=== PATIENT | female | born 1970 | race Caucasian/White ===

== ENCOUNTER 2019-01-18 16:40 | Emergency (ER) | payer BC, OTHER ==
--- NOTE | 2019-01-18 17:43 | ER Document Report ---
ED Medical Screen (RME) - General Chief Complaint: Blood Pressure Problem Stated Complaint: BLOOD PRESSURE ISSUES Time Seen by Provider: 01/18/19 17:40 Mode of Arrival: Ambulatory Information source: Patient Notes: Patient presents to the emergency department with complaints of high blood pressure. Reports she is going to have a biopsy of her breast and she has had her blood pressure checked several times it has been elevated. Denies headache. Reports little blurred vision. Reports she has history of high blood pressure due to anxiety medication a few years ago but no longer taking that medication. I have greeted and performed a rapid initial assessment of this patient. A comprehensive ED assessment and evaluation of the patient, analysis of test results and completion of the medical decision making process will be conducted by additional ED providers. Dictation of this chart was performed using voice recognition software; therefore, there may be some unintended grammatical errors. TRAVEL OUTSIDE OF THE [place] IN LAST 30 DAYS: No - Related Data Allergies/Adverse Reactions: No Known Allergies Allergy (Verified 01/18/19 16:43) Past Medical History - Past Medical History Cardiac Medical History: Reports: Hx Hypertension - HCTZ Denies: Hx Coronary Artery Disease, Hx Heart Attack Pulmonary Medical History: Denies: Hx Asthma, Hx Bronchitis, Hx COPD, Hx Pneumonia Neurological Medical History: Reports: Hx Migraine. Denies: Hx Cerebrovascular Accident, Hx Seizures GI Medical History: Denies: Hx Hepatitis, Hx Hiatal Hernia, Hx Ulcer Musculoskeltal Medical History: Denies Hx Arthritis Psychiatric Medical History: Reports: Hx Anxiety, Hx Depression Infectious Medical History: Denies: Hx Hepatitis Past Surgical History: Reports: Hx Cholecystectomy, Hx Orthopedic Surgery. Denies: Hx Hysterectomy, Hx Mastectomy, Hx Open Heart Surgery, Hx Pacemaker - Immunizations Hx Diphtheria, Pertussis, Tetanus Vaccination: No Physical Exam - Vital signs Vitals: Temp Pulse Resp BP Pulse Ox 98.6 F 96 16 152/88 H 96 01/18/19 16:45 01/18/19 16:45 01/18/19 16:45 01/18/19 16:45 01/18/19 16:45 Course - Vital Signs Vital signs: Temp Pulse Resp BP Pulse Ox 98.6 F 96 16 152/88 H 96 01/18/19 16:45 01/18/19 16:45 01/18/19 16:45 01/18/19 16:45 01/18/19 16:45
[2019-01-18 18:14] LABS: ABSOLUTE EOSINOPHILS # (AUTO) 0.2 10^3/uL (0.0-0.6); ABSOLUTE LYMPHOCYTES (AUTO) 1.4 10^3/uL (0.5-4.7); ABSOLUTE MONOCYTES (AUTO) 0.5 10^3/uL (0.1-1.4); ABSOLUTE NEUT (AUTO) 5.2 10^3/uL (1.7-8.2); BASOPHILS % (AUTO) 0.5 % (0-2); EOSINOPHILS % (AUTO) 2.7 % (0-6); HEMATOCRIT 35.5 % (36.0-47.0); LYMPHOCYTES % (AUTO) 19.1 % (13-45); MEAN CORPUSCULAR HEMOGLOBIN 27.8 pg (27.0-33.4); MEAN CORPUSCULAR HGB CONC 33.7 g/dL (32.0-36.0); MEAN CORPUSCULAR VOLUME 83 fl (80-97); MONOCYTES % (AUTO) 7.3 % (3-13); PLATELET COUNT 284 10^3/uL (150-450); RED CELL DISTRIBUTION WIDTH 15.7 % (11.5-14.0); SEGMENTED NEUTROPHILS % (AUTO) 70.4 % (42-78); TOTAL CELLS COUNTED % (AUTO) 100 %; WHITE BLOOD COUNT 7.4 10^3/uL (4.0-10.5)
[2019-01-18 18:36] LABS: ALANINE AMINOTRANSFERASE 22 U/L (9-52); ALBUMIN 4.3 g/dL (3.5-5.0); ALKALINE PHOSPHATASE 94 U/L (38-126); ANION GAP 10 (5-19); ASPARTATE AMINO TRANSFERASE 19 U/L (14-36); BILIRUBIN,DIRECT 0.2 mg/dL (0.0-0.4); BILIRUBIN,TOTAL 0.4 mg/dL (0.2-1.3); BLOOD UREA NITROGEN 14 mg/dL (7-20); CALCIUM 9.2 mg/dL (8.4-10.2); CARBON DIOXIDE 26 mmol/L (22-30); CHLORIDE 102 mmol/L (98-107); GLUCOSE 120 mg/dL (75-110); TOTAL PROTEIN 7.4 g/dL (6.3-8.2)
[2019-01-19] MEDS ORDERED: LISINOPRIL 10 MG TABLET PO ONE (00:08)
--- NOTE | 2019-01-19 00:11 | ER Document Report ---
ED General - General Chief Complaint: Blood Pressure Problem Stated Complaint: BLOOD PRESSURE ISSUES Time Seen by Provider: 01/18/19 17:40 Primary Care Provider: BERNY ISAAC MD [Primary Care Provider] - Follow up in 3-5 days Mode of Arrival: Ambulatory Notes: Patient is a 48-year-old female without chronic medical problems who presents from an urgent care due to concerns of essential hypertension. The patient reports that for the past several days she has noted intermittent blurring of vision, has checked her blood pressure on several occasions in multiple different locations including at home and her [facility] and found that it is consistently elevated usually in the 150s to 170 systolic. She went to an urgent care today, blood pressure was 175 systolic and she was referred to the emergency room due to degree of blood pressure elevation. She denies any associated symptoms at the time of my evaluation stating that the only symptom that she is had is occasional blurring of vision. Denies any visual field changes at the time of my assessment. No headache, neck pain, shortness of breath or chest pain. Nothing seems to improve or worsen her blood pressure. States she is never been on blood pressure medications in the past. Has not seen her primary doctor regarding today's concerns. TRAVEL OUTSIDE OF THE [place] IN LAST 30 DAYS: No - HPI Patient complains to provider of: High blood pressure Onset: Just prior to arrival Onset/Duration: Constant Quality of pain: No pain Severity: None Pain Level: Denies Associated symptoms: None Exacerbated by: Denies Relieved by: Denies Similar symptoms previously: Yes Recently seen / treated by doctor: Yes - Related Data Allergies/Adverse Reactions: No Known Allergies Allergy (Verified 01/18/19 16:43) Past Medical History - General Information source: Patient - Social History Smoking Status: Never Smoker Chew tobacco use (# tins/day): No Frequency of alcohol use: Rare Drug Abuse: None Lives with: Family Family History: Reviewed & Not Pertinent Patient has suicidal ideation: No Patient has homicidal ideation: No - Past Medical History Cardiac Medical History: Reports: Hx Hypertension - HCTZ Denies: Hx Coronary Artery Disease, Hx Heart Attack Pulmonary Medical History: Denies: Hx Asthma, Hx Bronchitis, Hx COPD, Hx Pneumonia Neurological Medical History: Reports: Hx Migraine. Denies: Hx Cerebrovascular Accident, Hx Seizures Renal/ Medical History: Denies: Hx Peritoneal Dialysis GI Medical History: Denies: Hx Hepatitis, Hx Hiatal Hernia, Hx Ulcer Musculoskeletal Medical History: Denies Hx Arthritis Psychiatric Medical History: Reports: Hx Anxiety, Hx Depression Infectious Medical History: Denies: Hx Hepatitis Past Surgical History: Reports: Hx Cholecystectomy, Hx Orthopedic Surgery. Denies: Hx Hysterectomy, Hx Mastectomy, Hx Open Heart Surgery, Hx Pacemaker - Immunizations Hx Diphtheria, Pertussis, Tetanus Vaccination: No Review of Systems - Review of Systems Notes: Constitutional: Negative for fever. HENT: Negative for sore throat. Eyes: Negative for visual changes. Cardiovascular: Negative for chest pain. Respiratory: Negative for shortness of breath. Gastrointestinal: Negative for abdominal pain, vomiting or diarrhea. Genitourinary: Negative for dysuria. Musculoskeletal: Negative for back pain. Skin: Negative for rash. Neurological: Negative for headaches, weakness or numbness. 10 point ROS negative except as marked above and in HPI. Physical Exam - Vital signs Vitals: Temp Pulse Resp BP Pulse Ox 98.6 F 96 16 152/88 H 96 01/18/19 16:45 01/18/19 16:45 01/18/19 16:45 01/18/19 16:45 01/18/19 16:45 Interpretation: Hypertensive Notes: PHYSICAL EXAMINATION: GENERAL: Well-appearing, well-nourished and in no acute distress. HEAD: Atraumatic, normocephalic. EYES: Pupils equal round and reactive to light, extraocular movements intact, sclera anicteric, conjunctiva are normal. ENT: nares patent, oropharynx clear without exudates. Moist mucous membranes. NECK: Normal range of motion, supple without lymphadenopathy LUNGS: Breath sounds clear to auscultation bilaterally and equal. No wheezes rales or rhonchi. HEART: Regular rate and rhythm without murmurs ABDOMEN: Soft, nontender, normoactive bowel sounds. No guarding, no rebound. No masses appreciated. EXTREMITIES: Normal range of motion, no pitting or edema. No cyanosis. NEUROLOGICAL: No focal neurological deficits. Moves all extremities spontaneously and on command. PSYCH: Normal mood, normal affect. SKIN: Warm, Dry, normal turgor, no rashes or lesions noted. Course - Re-evaluation Re-evalutation: 01/19/19 00:09 Presentation of asymptomatic hypertension. Patient has had some intermittent blurring of vision by her report over the past several months but denies anything currently. Sent from an urgent care due to the elevation of her blood pressure. Patient denies any symptoms concerning for SAH, dissection, IA, or encephalopaty. Alert, oriented, and denies any symptoms at time of assessment. Labs obtained in triage reviewed and noted to be unremarkable. I have discussed critical importance of follow up with PCP within 1 week and increased risk of devastating stroke, heart attack, respiratory distress, and other life threatening complications if blood pressure is not reduced appropriately. Diet and exercise habits also discussed. Patient has been started on lisinopril 20 mg daily. First dose given here in the emergency department. At this time will discharge with return precautions and follow-up recommendations. Verbal discharge instructions given a the bedside and opportunity for questions given. Medication warnings reviewed. Patient is in agreement with this plan and has verbalized understanding of return precautions and the need for primary care follow-up in the next 24-72 hours. 01/19/19 00:09 - Vital Signs Vital signs: Temp Pulse Resp BP Pulse Ox 98.0 F 98 18 151/91 H 94 01/19/19 00:14 01/19/19 00:14 01/19/19 00:14 01/19/19 00:14 01/19/19 00:14 - Laboratory Result Diagrams: 01/18/19 17:46 01/18/19 17:46 Laboratory results interpreted by me: 01/18/19 01/18/19 17:46 17:46 Hct 35.5 L RDW 15.7 H Glucose 120 H Discharge - Discharge Clinical Impression: Essential hypertension Condition: Good Disposition: HOME, SELF-CARE Additional Instructions: You were seen today for blood pressure that was high. This is a long-term risk factor for multiple medical problems including heart attack and stroke. However, the blood pressure in of itself will not cause you to have an acute stroke or heart attack over the course of just several days or weeks. You need to have a gradual reduction of your blood pressure back to normal levels over the next several months in conjunction with your primary care physician. Return if you develop headache, weakness, numbness, chest pain, pass out, or have any other symptoms that are concerning to you. Prescriptions: Lisinopril 20 mg PO DAILY #30 tablet Forms: Return to Work Referrals: BERNY ISAAC MD [Primary Care Provider] - Follow up in 3-5 days
[2019-01-19 00:17] VITALS: BP 151/91
[2019-01-20] MEDS ORDERED: IBUPROFEN 800 MG TABLET PO PRN (21:27)
== END 2019-01-19 00:18 | disposition home or self-care (01) ==
LOC: ER 16:40
DX: I10 Essential (primary) hypertension (principal)
CPT/HCPCS: 36415; 80053; 85025; 99283

== ENCOUNTER 2020-05-16 22:23 | Emergency (ER) | payer BC ==
[2020-05-16] MEDS ORDERED: HYDROCODONE/ACETAMINOPHEN 5-325 MG TABLET PO ONE (23:44)
[2020-05-16] MEDS ORDERED: ONDANSETRON 4 MG TAB.RAPDIS PO ONE (23:44)
--- NOTE | 2020-05-16 23:45 | ER Document Report ---
ED Medical Screen (RME) - General Chief Complaint: Abdominal Pain Stated Complaint: ABDOMINAL PAIN 1 DAY Time Seen by Provider: 05/16/20 23:40 Primary Care Provider: BERNY ISAAC MD [Primary Care Provider] - Follow up as needed Mode of Arrival: Ambulatory Information source: Patient Notes: HPI; 49-year-old female presents to the emergency room complaining of worsening sharp stabbing left lower quadrant pain that started yesterday. Denies any nausea, vomiting, no urinary symptoms no fevers. No known history of diverticulitis. Did not take any medications for her pain. PE: Alert and oriented x3. Moderate distress noted. Lungs: Clear to auscultation without rales, rhonchi, wheezes. Heart: Regular rate and rhythm without murmurs, rubs, gallops. I have greeted and performed a rapid initial assessment of this patient. A comprehensive ED assessment and evaluation of the patient, analysis of test results and completion of the medical decision making process will be conducted by additional ED providers. I have specifically instructed the patient or family members with the patient to immediately return to any nursing staff should anything change in the patient's condition or with their chief complaint. TRAVEL OUTSIDE OF THE [place] IN LAST 30 DAYS: No - Related Data Allergies/Adverse Reactions: No Known Allergies Allergy (Verified 01/18/19 16:43) Past Medical History - Past Medical History Cardiac Medical History: Reports: Hx Hypertension - HCTZ Denies: Hx Coronary Artery Disease, Hx Heart Attack Pulmonary Medical History: Denies: Hx Asthma, Hx Bronchitis, Hx COPD, Hx Pneumonia Neurological Medical History: Reports: Hx Migraine. Denies: Hx Cerebrovascular Accident, Hx Seizures Renal/ Medical History: Denies: Hx Peritoneal Dialysis GI Medical History: Denies: Hx Hepatitis, Hx Hiatal Hernia, Hx Ulcer Musculoskeltal Medical History: Denies Hx Arthritis Psychiatric Medical History: Reports: Hx Anxiety, Hx Depression Infectious Medical History: Denies: Hx Hepatitis Past Surgical History: Reports: Hx Cholecystectomy, Hx Orthopedic Surgery. Denies: Hx Hysterectomy, Hx Mastectomy, Hx Open Heart Surgery, Hx Pacemaker - Immunizations Hx Diphtheria, Pertussis, Tetanus Vaccination: No Physical Exam - Vital signs Vitals: Temp Pulse Resp BP Pulse Ox 99.3 F 121 H 18 141/94 H 97 05/16/20 23:09 05/16/20 23:09 05/16/20 23:09 05/16/20 23:09 05/16/20 23:09 Course - Vital Signs Vital signs: Temp Pulse Resp BP Pulse Ox 99.3 F 121 H 18 141/94 H 97 05/16/20 23:09 05/16/20 23:09 05/16/20 23:09 05/16/20 23:09 05/16/20 23:09 Doctor's Discharge - Discharge Referrals: BERNY ISAAC MD [Primary Care Provider] - Follow up as needed
[2020-05-17 02:45] LABS: ABSOLUTE BASOPHILS # (AUTO) 0.1 10^3/uL (0.0-0.2); ABSOLUTE EOSINOPHILS # (AUTO) 0.2 10^3/uL (0.0-0.6); ABSOLUTE LYMPHOCYTES (AUTO) 2.1 10^3/uL (0.5-4.7); ABSOLUTE MONOCYTES (AUTO) 0.9 10^3/uL (0.1-1.4); ABSOLUTE NEUT (AUTO) 9.3 10^3/uL (1.7-8.2); BASOPHILS % (AUTO) 1.1 % (0-2); EOSINOPHILS % (AUTO) 1.8 % (0-6); HEMATOCRIT 38.4 % (36.0-47.0); HEMOGLOBIN 13.6 g/dL (12.0-15.5); LYMPHOCYTES % (AUTO) 16.7 % (13-45); MEAN CORPUSCULAR HEMOGLOBIN 33.7 pg (27.0-33.4); MEAN CORPUSCULAR HGB CONC 35.5 g/dL (32.0-36.0); MEAN CORPUSCULAR VOLUME 95 fl (80-97); MONOCYTES % (AUTO) 7.2 % (3-13); PLATELET COUNT 283 10^3/uL (150-450); RED BLOOD COUNT 4.04 10^6/uL (3.72-5.28); RED CELL DISTRIBUTION WIDTH 14.9 % (11.5-14.0); SEGMENTED NEUTROPHILS % (AUTO) 73.2 % (42-78); TOTAL CELLS COUNTED % (AUTO) 100 %; WHITE BLOOD COUNT 12.6 10^3/uL (4.0-10.5)
[2020-05-17 02:48] LABS: APPEARANCE,URINE CLEAR; BILIRUBIN,URINE NEGATIVE (NEGATIVE); COLOR,URINE YELLOW; GLUCOSE, URINE NEGATIVE (NEGATIVE); KETONES,URINE NEGATIVE (NEGATIVE); LEUKOCYTE ESTERASE,URINE NEGATIVE (NEGATIVE); NITRITE,URINE NEGATIVE (NEGATIVE); PROTEIN,URINE NEGATIVE (NEGATIVE); URINE SPECIFIC GRAVITY 1.024
[2020-05-17] MEDS ORDERED: MORPHINE SULFATE 10 MG/ML INJ IV ONE (02:54)
[2020-05-17] MEDS ORDERED: NORMAL SALINE 1000 ML 1,000 ML IV ONE (02:54)
[2020-05-17] MEDS ORDERED: ONDANSETRON HCL INJ/PF 4 MG/2 ML SDV IV ONE (02:54)
--- NOTE | 2020-05-17 02:56 | ER Document Report ---
ED GI/ - General Chief Complaint: Abdominal Pain Stated Complaint: ABDOMINAL PAIN 1 DAY Time Seen by Provider: 05/16/20 23:40 Primary Care Provider: BERNY ISAAC MD [ACTIVE STAFF] - 05/19/20 Mode of Arrival: Ambulatory Notes: Patient is a 49-year-old female comes emergency department for chief complaint of sharp pain in the left lower abdomen. She states symptoms started yesterday more mildly but today became sharp and tonight became a lot worse. She denies nausea, vomiting, flank pain, fever/chills, dysuria, vaginal bleeding or discharge. She has had a cholecystectomy, no other surgeries on the abdomen. Past medical history of hypertension, anxiety/depression, obesity, orthopedic surgery. She has never had a colonoscopy or diverticulitis. She is never had ovarian cysts. at bedside. TRAVEL OUTSIDE OF THE [place] IN LAST 30 DAYS: No - Related Data Allergies/Adverse Reactions: No Known Allergies Allergy (Verified 01/18/19 16:43) Home Medications: Cymbalta. fenobrite. topramax. robistatin. Lisinopril Past Medical History - General Information source: Patient - Social History Smoking Status: Never Smoker Chew tobacco use (# tins/day): No Frequency of alcohol use: None Drug Abuse: None Family History: Reviewed & Not Pertinent - Past Medical History Cardiac Medical History: Reports: Hx Hypertension - HCTZ Denies: Hx Coronary Artery Disease, Hx Heart Attack Pulmonary Medical History: Denies: Hx Asthma, Hx Bronchitis, Hx COPD, Hx Pneumonia Neurological Medical History: Reports: Hx Migraine. Denies: Hx Cerebrovascular Accident, Hx Seizures Renal/ Medical History: Denies: Hx Peritoneal Dialysis GI Medical History: Denies: Hx Hepatitis, Hx Hiatal Hernia, Hx Ulcer Musculoskeletal Medical History: Denies Hx Arthritis Psychiatric Medical History: Reports: Hx Anxiety, Hx Depression Infectious Medical History: Denies: Hx Hepatitis Past Surgical History: Reports: Hx Cholecystectomy, Hx Orthopedic Surgery. Denies: Hx Hysterectomy, Hx Mastectomy, Hx Open Heart Surgery, Hx Pacemaker - Immunizations Hx Diphtheria, Pertussis, Tetanus Vaccination: No Review of Systems - Review of Systems Constitutional: No symptoms reported EENT: No symptoms reported Cardiovascular: No symptoms reported Respiratory: No symptoms reported Gastrointestinal: See HPI Genitourinary: No symptoms reported Female Genitourinary: No symptoms reported Musculoskeletal: No symptoms reported Skin: No symptoms reported Hematologic/Lymphatic: No symptoms reported Neurological/Psychological: No symptoms reported Physical Exam - Vital signs Vitals: Temp Pulse Resp BP Pulse Ox 99.3 F 121 H 18 141/94 H 97 05/16/20 23:09 05/16/20 23:09 05/16/20 23:09 05/16/20 23:09 05/16/20 23:09 - Notes Notes: GENERAL: Patient appears uncomfortable, appears to be in pain HEAD: Normocephalic, atraumatic. EYES: Pupils equal, round, and reactive to light. Extraocular movements intact. ENT: Oral mucosa moist, tongue midline. Oropharynx unremarkable. Airway patent. NECK: Full range of motion. Supple. Trachea midline. No lymphadenopathy. LUNGS: Clear to auscultation bilaterally, no wheezes, rales, or rhonchi. No respiratory distress. Non-tender chest wall. HEART: Borderline tachycardic, normal rhythm, no murmur ABDOMEN: Significantly tender in the mid to lower left abdomen, nontender pelvic areas, remaining abdomen soft and benign, no guarding. No rigidity or rebound tenderness. EXTREMITIES: Moves all 4 extremities spontaneously. No edema, normal radial and dorsalis pedis pulses bilaterally. No cyanosis. BACK: no cervical, thoracic, lumbar midline tenderness. No saddle anesthesia, normal distal neurovascular exam. Moves all extremities in full range of motion. NEUROLOGICAL: Alert and oriented x3. Normal speech. Cranial nerves II through XII grossly intact. Strength 5/5 in all extremities. PSYCH: Normal affect, normal mood. SKIN: Warm, dry, normal turgor. No rashes or lesions noted. Course - Re-evaluation Re-evalutation: On initial exam patient did appear uncomfortable, she does have significant tenderness in the left lower quadrant, however the remaining abdomen is unremarkable. Patient is tachycardic but there is no hypotension or fever. CBC shows mild leukocytosis of 12,000 with elevated neutrophils but no bandemia. Chemistry unremarkable. Urinalysis shows elevated specific gravity, patient was given IV fluids. CT of the abdomen pelvis reviewed and shows acute di verticulitis without perforation, abscess, or other concerning findings. Discussed with patient. Patient is tolerating p.o. without difficulty, she feels much better now. Tachycardia resolved. Patient will be started on antibiotics, discussed expectations, precautions, follow-up, and return prec autions in detail with patient and . They state appreciation and agreement. Stable and well-appearing at time of discharge. - Vital Signs Vital signs: Temp Pulse Resp BP Pulse Ox 98.4 F 102 H 18 118/75 98 05/17/20 02:57 05/17/20 02:57 05/17/20 02:57 05/17/20 02:57 05/17/20 02:57 - Laboratory Result Diagrams: 05/17/20 02:21 05/17/20 02:21 Laboratory results interpreted by me: 05/17/20 05/17/20 05/17/20 02:21 02:21 02:21 WBC 12.6 H MCH 33.7 H RDW 14.9 H Absolute Neuts (auto) 9.3 H Glucose 156 H ALT 36 H Urine Urobilinogen 2.0 H Urine Ascorbic Acid 20 H Discharge - Discharge Clinical Impression: LLQ abdominal pain, Diverticulitis Condition: Stable Disposition: HOME, SELF-CARE Additional Instructions: Your work-up shows diverticulitis, infection at the end of your large intestine. Take the antibiotics as prescribed to completion, take the pain and nausea medications if needed, I recommend a clear fluid diet as we discussed for the first 24 to 48 hours. Rest. Follow-up closely with your primary care for additional evaluation and management. Come back if you worsen including severe worsening pain, vomiting, spiking fevers, bloody stools, or any other concerning or worsening symptoms. Prescriptions: Ciprofloxacin HCl [Cipro 500 mg Tablet] 500 mg PO BID 7 Days #14 tablet Metronidazole [Flagyl 500 mg Tablet] 500 mg PO TID 7 Days #21 tablet Oxycodone HCl/Acetaminophen [Percocet 5-325 mg Tablet] 1 - 2 tab PO TID PRN #10 tab PRN Reason: Ondansetron [Zofran Odt 4 mg Tablet] 1 - 2 tab PO Q4H PRN #15 tab.rapdis PRN Reason: For Nausea/Vomiting Forms: Return to Work Referrals: BERNY ISAAC MD [ACTIVE STAFF] - 05/19/20
[2020-05-17 02:58] VITALS: BP 118/75
[2020-05-17 03:03] LABS: ALBUMIN 4.6 g/dL (3.5-5.0); ALKALINE PHOSPHATASE 71 U/L (38-126); ANION GAP 13 (5-19); ASPARTATE AMINO TRANSFERASE 32 U/L (14-36); BILIRUBIN,DIRECT 0.3 mg/dL (0.0-0.4); BILIRUBIN,TOTAL 0.7 mg/dL (0.2-1.3); BLOOD UREA NITROGEN 10 mg/dL (7-20); CALCIUM 10.2 mg/dL (8.4-10.2); CARBON DIOXIDE 22 mmol/L (22-30); CHLORIDE 105 mmol/L (98-107); GLUCOSE 156 mg/dL (75-110); POTASSIUM 4.2 mmol/L (3.6-5.0); TOTAL PROTEIN 7.7 g/dL (6.3-8.2)
--- NOTE | 2020-05-17 03:58 | RADIOLOGY REPORT (SQ) ---
CLINICAL HISTORY: abdominal pain COMPARISON: None. TECHNIQUE: CT ABDOMEN PELVIS WITH IV CONTRAST on 05/16/2020 11:45 PM CDT This exam was performed according to our departmental dose-optimization program, which includes automated exposure control, adjustment of the mA and/or kV according to patient size and/or use of iterative reconstruction technique. FINDINGS: Lower lungs are clear. Abdomen: Liver is mildly enlarged and diffusely fatty in attenuation. There is no biliary dilatation. The pancreas and spleen are normal in appearance. The adrenal glands and kidneys are unremarkable. Abdominal aorta is normal in course and caliber without aneurysm. There is no free air. There is no retroperitoneal adenopathy. Pelvis: There is mild diverticulosis of the left colon. There is moderate thickening of short segment of the mid descending colon with surrounding inflammation. Urinary bladder is unremarkable. There is no free fluid. Uterus is normal in size. Appendix is normal. Skeleton: There are no acute osseous findings. No suspicious bony lesions. IMPRESSION: Suspect mid descending colonic diverticulitis.
[2020-05-17] MEDS ORDERED: METRONIDAZOLE 500 MG TABLET PO ONE (04:06)
[2020-05-17] MEDS ORDERED: CIPROFLOXACIN HCL 500 MG TABLET PO ONE (04:06)
[2020-05-17] MEDS ORDERED: HYDROCODONE/ACETAMINOPHEN 5-325 MG (6 TAB/ER DISP) PO PRN (04:07)
[2020-05-17] MEDS ORDERED: ONDANSETRON ODT 4 MG TAB (6 TAB/ER DISP) PO PRN (04:07)
== END 2020-05-17 04:48 | disposition home or self-care (01) ==
LOC: ER 22:23
DX: K57.92 Diverticulitis of intestine, part unspecified, without perforation or abscess without bleeding (principal); R10.32 Left lower quadrant pain; I10 Essential (primary) hypertension; F41.9 Anxiety disorder, unspecified; F32.9 Major depressive disorder, single episode, unspecified; E66.9 Obesity, unspecified; Z79.899 Other long term (current) drug therapy
CPT/HCPCS: 99285; 96361; 96374; 96375; 36415; 85025; 80053; 81001; 74177; S0119; J2270; J2405; J7030